=== PATIENT | male | born 1975 | race African-American/Black ===

== ENCOUNTER 2018-06-15 11:42 | Emergency (ER) | payer SELFPAY ==
[~2018-06-15] VITALS: Ht 175.3 cm; Wt 68.0 kg
[2018-06-15 11:50] VITALS: BP 118/59
[2018-06-15] MEDS: IBUPROFEN 600 MG TABLET. PO ONE (12:30)
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
== END 2018-06-15 12:51 | disposition home or self-care (01) ==
LOC: ER 11:42
DX: M54.6 Pain in thoracic spine (principal); V49.49XA Driver injured in collision with other motor vehicles in traffic accident, initial encounter; Y93.89 Activity, other specified; Y92.410 Unspecified street and highway as the place of occurrence of the external cause; Y99.8 Other external cause status
CPT/HCPCS: 72072; 99283